=== PATIENT | male | born 1950 | race Caucasian/White ===

== ENCOUNTER 2024-04-07 06:53 | Outpatient (CLI) | payer OTHER, SELFPAY ==
--- NOTE | ~2024-04-07 | MR_ITS ---
MRI of the brain Clinical History: Hearing loss Technique: Axial and sagittal T1-weighted images were acquired. These were followed by axial T2-weigh ashley, diffusion weighted, gradient, and FLAIR images. Thin cut axial and coronal T1-weighted and T2-we ighted images were acquired through the internal auditory canals. Findings: No abnormal signal seen in the brain parenchyma. No acute infarct, intracranial hemorrhage, or mass lesion. Ventricles and subarachnoid spaces are unremarkable. Orbits are unremarkable. Paranasal sinuses and m astoid air cells are clear. Major intracranial flow voids are intact. Sagittal midline structures are intact. No abnormality seen at the internal auditory canals or CP ang le regions. IMPRESSION: No significant abnormality identified. Reviewed, dictated and finalized at location . [facility]
== END 2024-04-07 06:54 | disposition home or self-care (01) ==
LOC: CHSIMG 07:02
DX: H91.8X3 Other specified hearing loss, bilateral (principal)
CPT/HCPCS: 70551